=== PATIENT | female | born 1995 | race African-American/Black ===

== ENCOUNTER 2018-12-16 20:53 | Inpatient (IN) | payer OTHER ==
[2018-12-16] MEDS ORDERED: Ringers Lactate 1,000 ML IV PRN (21:16)
[2018-12-16 21:57] LABS: RPR Titer ND
[2018-12-16 21:59] LABS: Absolute Lymphocytes (CBC) 1.1 K/uL (0.7-4.9); Absolute Monocytes 1.2 K/uL (0.1-1.3); Absolute Neutrophil 9.5 K/uL (1.8-8.0); Basophils % 0.2 % (0-1.3); Eosinophils % 0.5 % (0-4.4); Monocytes % 10.3 % (3.3-12.3); RBC Red Blood Cell Count 4.44 M/uL (3.86-4.86)
[2018-12-16] MEDS ORDERED: Ringers Lactate 1,000 ML IV SCH (22:00)
[2018-12-16] MEDS ORDERED: BUTORPHANOL 1 MG/ML INJ IV PRN (22:06)
[2018-12-16] MEDS ORDERED: METHYLERGONOVINE 0.2MG/ML AMP IM ONE (22:20)
[2018-12-16] MEDS ORDERED: CARBOPROST TROME 250 MCG/ML IM ONE (22:20)
[2018-12-16] MEDS ORDERED: LIDOCAINE 1% MPF 30 ML VIAL SQ PRN (22:24)
--- NOTE | 2018-12-16 22:26 | P.OBGYNHP ---
Certification for Inpatient Patient admitted to: Inpatient With expected LOS: <2 Midnights Patient will require the following post-hospital care: None Practitioner: I am a practitioner with admitting privileges, knowledge of patient current condition, hospital course, and medical plan of care. Services: Services provided to patient in accordance with Admission requirements found in Title 42 Section 412.3 of the Code of Federal Regulations Patient History Date of Service: 12/17/18 Reason for admission: LABOR History of Present Illness: Patient is a 23 y/o a 39 weeks and 3 days gestation who presents in labor with rupture of membranes. Her water broke and she has been having contractions since earlier this evening. She has obtained care at [facility]. Her records were requested and reviewed. Patient last had an ultrasound in October and the estimated weight was about 6 pounds. She had chlamydia during the which was treated. She is RH negative. Allergies No Known Allergies Allergy (Unverified 12/16/18 21:16) Home Medications: Pnv22/Iron Cbn&Gluc/FA/Dss/Dha [Pnv Ob+Dha Combo Pack] 1 cap PO DAILY 12/17/18 - Past Medical/Surgical History Has patient received pneumonia vaccine in the past: No Diabetic: No Past Medical History: Patient denies medical history Past Surgical History: Patient denies surgical history - Family History Family History: Reviewed- Non-Contributory - Social History Smoking Status: Never smoker Alcohol use: No CD- Drugs: No Caffeine use: No Place of Residence: Home Review of Systems 10-point ROS is otherwise unremarkable Physical Examination - Vital Signs Temperature: 99.8 F Blood Pressure: 127/80 Pulse: 76 Respirations: 18 - General General: Alert, Oriented x3, Moderate distress HEENT: Atraumatic Neck: Supple Respiratory: Normal air movement Cardiovascular: No edema, Normal pulses Breasts: Normal configuration, Normal contours, Symmetrical Musculoskeletal: No clubbing, No swelling Integumentary: No rashes, No breakdown Neurological: Normal gait, Normal speech - Female Pelvic Cervix: Dilation (9cm), Effacement (100), station (0) Uterus: Gravid Adnexa: Unable to evaluate - Obstetrics heart rate tracing: Category 2 Contractions: Frequency (every 3-4 minutes) Amniotic membrane: SROM Laboratory Data (last 24 hrs) 12/16/18 21:40: WBC 11.8 H, Hgb 13.3, Hct 40.0, Plt Count 217 Assessment and Plan - Plan Patient is a 23 y/o at 39 weeks and 3 days gestation who presents in active labor. RH Negative. Patient is 9 cm dilated. Will provide stadol for pain management. Routine intrapartum care. Anticipate vaginal . Discharge Plan: Home Plan to discharge in: 48 Hours - Advance Directives Does patient have a Living Will: No Does patient have a Durable POA for Healthcare: No
[2018-12-16 22:57] LABS: RPR (Rapid Plasma Reagin) NON-REACT (NON-REACT)
[2018-12-16] MEDS ORDERED: OXYTOCIN/LR 20 UNIT/1,000 ML BAG IV SCH (23:00)
[2018-12-17] MEDS ORDERED: IBUPROFEN 200 MG TAB PO PRN (00:04)
[2018-12-17] MEDS ORDERED: ACETAMINOPHEN 500 MG TAB PO PRN (00:04)
[2018-12-17] MEDS ORDERED: BISACODYL 10 MG RECTAL SUPP RECT PRN (00:04)
[2018-12-17] MEDS ORDERED: METHYLERGONOVINE 0.2 MG TAB PO PRN (00:04)
[2018-12-17] MEDS ORDERED: Oxycodone HCl/Acetaminophen 1 TAB TAB PO PRN (00:04)
[2018-12-17] MEDS ORDERED: ONDANSETRON 4 MG (ODT) TAB PO PRN (00:04)
[2018-12-17] MEDS ORDERED: Rho(D) IG (HUMAN) 300 MCG SYR IM PRN (00:04)
[2018-12-17] MEDS ORDERED: DOCUSATE NA/SENNA CONC 1 TAB PO PRN (00:04)
--- NOTE | 2018-12-17 00:04 | P.OP ---
Date of Service: 12/17/18 Findings and Operative Technique Patient delivered a viable male in cephalic presentation on 12/16/18 at 23 :42. was delivered over a midline episiotomy. Once infant was delivered the nose and mouth were suctioned with a suction bulb and cord was clamped and cut. was placed on the mother's abdomen. Cord blood was obtained. Placenta was then delivered with gentle traction. Placenta was inspected and found to be intact. Uterine massage was performed and fundus was found to be firm. Attention was then turned to the perineum which was repaired with a 2.0 vicryl in usual fashion. EBL was 300cc. APGARS were assigned 9/10. Weight was found to be 5 lb 13 ounces. First stage of labor was 4 hours and 23 minutes. Second stage was 11 minutes. Both mom and baby are doing well and bonding well. Patient is breast feeding. Routine care to be provided.
[2018-12-17 00:46] VITALS: BMI 29.4
[2018-12-17 13:34] LABS: Absolute Lymphocytes (CBC) 1.5 K/uL (0.7-4.9); Absolute Monocytes 1.6 K/uL (0.1-1.3); Absolute Neutrophil 17.2 K/uL (1.8-8.0); Basophils % 0.2 % (0-1.3); Eosinophils % 0.2 % (0-4.4); Lymphocytes % 7.2 % (15.3-44.8); MPV 10.9 fL (7.6-11.3); Monocytes % 7.8 % (3.3-12.3); RBC Red Blood Cell Count 4.25 M/uL (3.86-4.86)
[2018-12-17 14:45] LABS: Blood Morphology Comment NOTED (NOT SEEN); Macrocytosis 1+; Platelet Estimate ADEQ; Polychromasia SLIGHT
[2018-12-18 07:51] VITALS: BP 114/63; TEMP 97.8
[2018-12-18] MEDS ORDERED: Tdap (Diph,Pertuss(Acell),Tet Vac) 0.5 ML SYR IMVAC ONE (08:09)
--- NOTE | 2018-12-19 21:55 | P.DS ---
Admission Date: 12/16/18 Discharge Date: 12/18/18 Disposition: ROUTINE DISCHARGE Discharge Condition: GOOD Reason for Admission: LABOR Brief History of Present Illness: Patient is a 23 y/o a 39 weeks and 3 days gestation who presents in labor with rupture of membranes. Her water broke and she has been having contractions since earlier this evening. She has obtained care at [facility]. Her records were requested and reviewed. Patient last had an ultrasound in October and the estimated weight was about 6 pounds. She had chlamydia during the which was treated. She is RH negative. Hospital Course: Patient did well following delivery. Her pain has been well managed. She is tolerating a regular diet. She is ambulating without difficulty. She is bonding well with the baby. No new issues. Vital Signs/Physical Exam: Temp Pulse Resp BP Pulse Ox 97.8 F 63 18 114/63 12/18/18 07:10 12/18/18 07:10 12/18/18 07:10 12/18/18 07:10 General: Alert, In no apparent distress HEENT: Atraumatic Neck: Supple Respiratory: Normal air movement Cardiovascular: No edema, Normal pulses Gastrointestinal: Other (fundus firm ) Integumentary: No rashes, No breakdown Neurological: Normal gait, Normal speech External genitalia: No edema, No lesions Laboratory Data at Discharge: WBC 20.3 K/uL (4.3-10.9) H* D 12/17/18 13:14 Hgb 12.8 g/dL (12.0-15.0) 12/17/18 13:14 Hct 38.0 % (36.0-45.0) 12/17/18 13:14 Plt Count 216 K/uL (152-406) 12/17/18 13:14 Home Medications: Pnv22/Iron Cbn&Gluc/FA/Dss/Dha [Pnv Ob+Dha Combo Pack] 1 cap PO DAILY 12/17/18 Diet: Regular Activity: No lifting more than 10 lbs Followup: Rj Vazquez DO [ACTIVE - CAN ADMIT] - (Follow up care with Dr. Vazquez in 6 weeks for post visit. [phone])
[2018-12-23 04:16] LABS: HBsAG Nonreactive (Nonreactive)
== END 2018-12-18 11:30 | disposition home or self-care (01) | DRG 806 ==
LOC: L&D 20:53 → 2ND-WC 21:13
PROVIDERS: ADMIT Student in an Organized Health Care Education/Training Program; ATTEND Student in an Organized Health Care Education/Training Program
PROC: 10E0XZZ Delivery of Products of Conception, External Approach (ICD-10-PCS; principal; 2018-12-17)
PROC: 0W8NXZZ Division of Female Perineum, External Approach (ICD-10-PCS; 2018-12-17)
DX: O98.32 Other infections with a predominantly sexual mode of transmission complicating childbirth (principal); O36.0930 Maternal care for other rhesus isoimmunization, third trimester, not applicable or unspecified; Z37.0 Single live birth; A56.8 Sexually transmitted chlamydial infection of other sites; Z3A.39 39 weeks gestation of pregnancy
CPT/HCPCS: 36415; 85025; 85461; 86592; 86850; 86870; 86901; 87340; 90715; J0595; J2210; J2590; J2790

== ENCOUNTER 2020-09-17 04:29 | Inpatient (IN) | payer OTHER ==
--- OUTSIDE RECORDS SUMMARY | 2020-09-17 04:32 | XMS REPORT | Continuity of Care Document ---
:[address] [facility] t Address [address] [place] [address] Care Team Providers Name Role Phone Mati Purcell Attending Clinician Problems This patient has no known problems. Allergies, Adverse Reactions, Alerts This patient has no known allergies or adverse reactions. Medications This patient has no known medications. Procedures This patient has no known procedures. Encounters Start End Encounter Admission Attending Care Care Encounter Source Date/Time Date/Time Type Type Clinicians Facility Department ID 2020-09-05 2020-09-05 Routine Brianne [facility] [id number] 14:26:53 14:53:59 Velvet C OLERICULTURIST [id number] Visit REGIONAL [id number] MATERNAL [id number] & CHILD 107 [facility] 2020-08-29 2020-08-29 Routine Brianne [facility] [id number] 15:42:06 16:40:03 Velvet C OLERICULTURIST [id number] Visit REGIONAL [id number] MATERNAL [id number] & CHILD 107 [facility] Results This patient has no known results.
--- OUTSIDE RECORDS SUMMARY | 2020-09-17 04:32 | XMS REPORT | Summary of Care ---
:1995 Author Organization [facility] Address [address] [place] [address] Care Team Providers Name Role Phone Velvet Decker [facility] Provider [phone] Reason for Visit Reason Comments Care Encounter Details Date Type Department Care Team Description 06/26/2020 Routine [facility]- Brianne, Richard vision of high risk in second trimester (Primary Dx); Visit Saba Thorne [facility] Multiparity; [address] Need f or Tdap vaccination; Street ST Rh negative status during in t hird trimester; [place], [place] [address] [place], [place] [phone] Allergies No Known Allergiesdocumented as of this encounter (statuses as of 06/27/2020) Medications Medication Sig Dispensed Refills Start Date End Date Status vit Take by mouth. 0 A ctive calc,iron,folic ( VITAMIN ORAL)Indications: Supervision of high-risk with insufficient care in third trimester PNV 67-iron ps-folate Take 1 Each by 30 capsule 6 10/28/2018 Active no.1-dha (VITAFOL mouth daily. ULTRA) 29 mg iron- 1 mg-200 mg CapIndications: Supervision of high-risk with insufficient care in third trimester ascorbic acid, vitamin Take 1 tablet by 90 tablet 2 06/13/2020 Active C, 500 mg mouth 3 (three) tabletIndications: times daily. Anemia of mother in , antepartum ferrous sulfate 325 mg Take 1 tablet by 60 tablet 3 06/13/2020 Active (65 mg iron) mouth 2 (two) tabletIndications: times daily. Anemia of mother in , antepartum Hospital, Clinic, or Other Ordered Dose Route Frequency Start Date End Date Status Facility Administered Medication rho(D) immune globulin 300 mcg IM ONCE 06/26/20202019 Ended (RHOGAM) syringe 300 mcgIndications: Rh negative status during in third trimester documented as of this encounter (statuses as of 06/27/2020) Active Problems Problem Noted Date Anemia of mother in , antepartum 06/13/2020 Multiparity 04/20/2020 Obesity in 04/20/2020 Rh negative state in antepartum period 10/29/2018 Overview: Rhogam at 28 weeks and prn vaginal bleed ing Supervision of high-risk with insufficient p renatal care 10/28/2018 Estimated Date of Delivery Comments Yes 09/13/2020 Based on last menstr ual period of 12/08/2019 (Exact Date) documented as of this encounter (statuses as of 06/27/2020) Resolved Problems Problem Noted Date Resolved Date Carpal tunnel syndrome during 12/03/2018 04/20/2020 Chlamydia trachomatis infection of lower genitourinary sites 11/01/2018 04/20/2020 Overview: Mireya at next visit and at 36 weeks documented as of this encounter (statuses as of 06/27/2020) Immunizations Name Administration Dates Next Due Rho (d) Immune Globulin 06/26/2020 TDAP 06/26/2020 documented as of this encounter Social History Tobacco Use Types Packs/Day Years Used Date Never Smoker Smokeless Tobacco: Never Used Alcohol Use Drinks/Week oz/Week Comments No Estimated Date of Delivery Comments Yes 09/13/2020 Based on last menstr ual period of 12/08/2019 (Exact Date) Sex Assigned at Date Recorded Not on file COVID-19 Exposure Response Date Recorded In the last month, have you been in contact with No / Unsure 06/26/2020 10:03 AM CDT someone who was confirmed or suspected to have Coronavirus / COVID-19? documented as of this encounter Last Filed Vital Signs Vital Sign Reading Time Taken Comments Blood Pressure 109/62 06/26/2020 10:04 AM CDT Pulse 83 06/26/2020 10:04 AM CDT Temperature 36.9 C (98.4 F) 06/26/2020 10:04 AM CDT Respiratory Rate 16 06/26/2020 10:04 AM CDT Oxygen Saturation - - Inhaled Oxygen Concentration - - Weight 83.5 kg (184 lb 2 oz) 06/26/2020 10:04 AM CDT Height 165.1 cm (5' 5") 06/26/2020 10:04 AM CDT Body Mass Index 30.64 06/26/2020 10:04 AM CDT documented in this encounter Progress Notes Velvet Decker, WHCNP - 06/26/2020 9:45 AM CDT Chief complaint: Chief Complaint Patient presents with Care HPI CC: Follow Up Visit Karen Harman is a 25 year old, , Black or female. Patient's last menstrual period was 12/08/2019 (exact date). She is 28w5d with an intrauterine . Her estimated date of delivery is 09/13/2020, by Last Menstrual Period. She has no complaints today. She reports +FM and denies contractions, LOF and bleeding today. Histories OB History Para Term AB Living 2 1 1 1 SAB TAB Ectopic Multiple Live Births 1 # Outcome Date GA Lbr Eliazar/2nd Weight Sex Delivery Anes PTL Lv 2 Current 1 Term 12/16/18 39w3d M NORMAL SPONT MAX Past Medical History: Diagnosis Date Anemia of mother in , antepartum 06/13/2020 Family History Problem Relation Age of Onset Hypertension Mother No Significant Medical Problems Sister No Significant Medical Problems Brother No Significant Medical Problems Maternal Aunt No Significant Medical Problems Maternal Uncle Diabetes Maternal Grandmother Hypertension Maternal Grandmother Heart Maternal Grandmother High cholesterol Maternal Grandmother Other - see comments Maternal Grandmother thyroid Heart Maternal Grandfather Diabetes Maternal Grandfather High cholesterol Maternal Grandfather Hypertension Maternal Grandfather Family Status Relation Name Status Mo Alive Fa Alive Sis Alive Bro Alive MAunt Alive MUnc Alive PAunt Alive PUnc Alive MGMo Alive thyroid MGFa PGMo PGFa No past surgical history on file. Social History Socioeconomic History Marital status: Single Spouse name: Not on file Number of children: Not on file Years of education: Not on file Highest education level: Not on file Occupational History Not on file Social Needs Financial resource strain: Not on file Food insecurity Worry: Not on file Inability: Not on file Transportation needs Medical: Not on file Non-medical: Not on file Tobacco Use Smoking status: Never Smoker Smokeless tobacco: Never Used Substance and Sexual Activity Alcohol use: No Drug use: No Sexual activity: Yes Partners: Male control/protection: None Comment: last sexual intercourse 03/21/2020 Lifestyle Physical activity Days per week: Not on file Minutes per session: Not on file Stress: Not on file Relationships Social connections Talks on phone: Not on file Gets together: Not on file Attends cheondoism service: Not on file Active member of club or organization: Not on file Attends meetings of clubs or organizations: Not on file Relationship status: Not on file Intimate partner violence Fear of current or ex partner: Not on file Emotionally abused: Not on file Physically abused: Not on file Forced sexual activity: Not on file Other Topics Concern Not on file Social History Narrative Patient lives with child. Patient has 1 dog. Social History Substance and Sexual Activity Sexual Activity Yes Partners: Male control/protection: None Comment: last sexual intercourse 03/21/2020 Labs Labs are pending. and Routine Visit on 06/12/2020 Component Date Value POCT U SP GRAV 06/12/2020 . POCT PH U 06/12/2020 . POCT U LEUK EST 06/12/2020 . POCT U NIT 06/12/2020 . POCT U PROT 06/12/2020 1+ POCT U GLU 06/12/2020 Neg POCT U KETONE 06/12/2020 . POCT U UROBILI 06/12/2020 . POCT U BILI 06/12/2020 . POCT U BLD 06/12/2020 . GLUC 1 HR 06/12/2020 92* WBC 06/12/2020 8.30 RBC 06/12/2020 3.45* HGB 06/12/2020 10.1* HCT 06/12/2020 31.6* MCV 06/12/2020 91.6 MCH 06/12/2020 29.3 MCHC 06/12/2020 32.0 RDW-SD 06/12/2020 44.8 RDW-CV 06/12/2020 13.4 PLT 06/12/2020 251 MPV 06/12/2020 11.5 NRBC/100 WBC 06/12/2020 0.0 NRBC x10^3 06/12/2020 <0.01 GRAN MAT (NEUT) % 06/12/2020 72.2 IMM GRAN % 06/12/2020 1.20 LYMPH % 06/12/2020 16.5 MONO % 06/12/2020 7.3 EOS % 06/12/2020 2.3 BASO % 06/12/2020 0.5 GRAN MAT x10^3(ANC) 06/12/2020 5.99 IMM GRAN x10^3 06/12/2020 0.10* LYMPH x10^3 06/12/2020 1.37 MONO x10^3 06/12/2020 0.61 EOS x10^3 06/12/2020 0.19 BASO x10^3 06/12/2020 0.04 Routine Visit on 05/22/2020 Component Date Value POCT U SP GRAV 05/22/2020 . POCT PH U 05/22/2020 . POCT U LEUK EST 05/22/2020 . POCT U NIT 05/22/2020 . POCT U PROT 05/22/2020 Trace POCT U GLU 05/22/2020 Neg POCT U KETONE 05/22/2020 . POCT U UROBILI 05/22/2020 . POCT U BILI 05/22/2020 . POCT U BLD 05/22/2020 . Initial Visit on 04/20/2020 Component Date Value POCT PREG 04/20/2020 Positive On board controls accept* 04/20/2020 Yes ABO & RH 04/20/2020 B NEGATIVE IAT 04/20/2020 Negative GLUC 1 HR 04/20/2020 117* CoV-2 IgG 04/20/2020 Negative WBC 04/20/2020 7.56 RBC 04/20/2020 3.58* HGB 04/20/2020 10.7* HCT 04/20/2020 32.1* MCV 04/20/2020 89.7 MCH 04/20/2020 29.9 MCHC 04/20/2020 33.3 RDW-SD 04/20/2020 42.3 RDW-CV 04/20/2020 12.9 PLT 04/20/2020 258 MPV 04/20/2020 11.7 NRBC/100 WBC 04/20/2020 0.0 NRBC x10^3 04/20/2020 <0.01 GRAN MAT (NEUT) % 04/20/2020 75.1 IMM GRAN % 04/20/2020 0.70 LYMPH % 04/20/2020 16.4 MONO % 04/20/2020 5.4 EOS % 04/20/2020 2.0 BASO % 04/20/2020 0.4 GRAN MAT x10^3(ANC) 04/20/2020 5.68 IMM GRAN x10^3 04/20/2020 0.05 LYMPH x10^3 04/20/2020 1.24* MONO x10^3 04/20/2020 0.41 EOS x10^3 04/20/2020 0.15 BASO x10^3 04/20/2020 0.03 HBsAg 04/20/2020 Negative HBsAg Semi-Quantitative 04/20/2020 0.10 HIV 1/2 Ag-Ab with Reflex 04/20/2020 Negative HIV Semi-quantitative 04/20/2020 0.07 Rubella screen IgG 04/20/2020 Positive Syphilis IgG/IgM 04/20/2020 Non-reactive URINE CULTURE 04/20/2020 >100,000 CFU/mL Lactobacillus VZV IgG antibody 04/20/2020 Positive C. trachomatis Nucleic A* 04/20/2020 Negative N. gonorrhoeae Nucleic A* 04/20/2020 Negative TSH 04/20/2020 0.51 SICKLE SCR 04/20/2020 Negative Case Report 04/20/2020 Value:Gynecologic Cytology Case: [id number] Authorizing Provider: Velvet Decker, Collected: 04/20/2020 1617 [facility] Ordering Location: [facility]- Received: 04/20/[address] [place] [address] Screen: Meagan Plascencia Specimen: Liquid Based Pap Preparation, CERVIX Clinical Information 04/20/2020 Value:routine Specimen Adequacy 04/20/2020 Satisfactory for Evaluation(Endocervical/Transformation Zone Component Present) Interpretation 04/20/2020 Negative for intraepithelial lesion or malignancy Comments 04/20/2020 Value:This result contains rich text formatting which cannot be displayed here. LMP 04/20/2020 Educational Note 04/20/2020 Value:This result contains rich text formatting which cannot be displayed here. Radiology No new radiology. Allergies Karen has No Known Allergies. Medications Karen has a current medication list which includes the following prescription(s): ascorbic acid (vitamin c), ferrous sulfate, pnv 67-iron ps- folate no.1-dha, and vit calc,iron,folic. Review of Systems BP 109/62 (BP Location: Right arm, Patient Position: Sitting, BP CUFF SIZE: Adult Medium) | Pulse 83 | Temp 36.9 C (98.4 F) (Oral) | Resp 16 | Ht 5' 5" (1.651 m) | Wt 184 lb 2 oz (83.5 kg) | LMP 12/08/2019 (Exact Date) | BMI 30.64 kg/m Pregravid BMI: 28.96 Physical Exam Assessment/Plan Return to clinic in 2 weeks. Denies zika virus risk, signs and symptoms such as fever,rash,joint pain, conjunctivitis (red eyes),muscle pain, headaches; outside [place] travel to areas affected by zika, and FOB exposure to zika. Educated on use of mosquito repellent. Supervision of high risk in second trimester (primary encounter diagnosis) Multiparity Comment: routine Plan: HIV 1/2 AG-AB WITH REFLEX, GALV ONLY - SYPHILIS IGG/IGM, POCT URINALYSIS W SPECIFIC GRAVITY Need for Tdap vaccination Comment: as ordered Plan: TDAP VACCINE, >10 YRS, IM Rh negative status during in third trimester Comment: as ordered Plan: rho(D) immune globulin (RHOGAM) syringe 300 mcg Obesity in Comment: see bmi Plan: BMI discussed, appropriate weight gain, sensible diet, and exercise, increased fiber and waterintake and protein low in fat. Encouraged exercise for 30 min everyday; begin regimen with caution to prevent injury. Encouraged to decrease BMI to <25. Educated on how obesity and smoking can affect future and health. Educated on the effects of chronic health problems, tobacco use, and mental health on future pregnancies and/or termite inspector health. This visit did not involve counseling and coordination that comprised more than 50% of the visit time. MARLI Lemus 06/26/2020 10:29 AM Josué Dewey RN - 06/26/2020 9:45 AM CDTPatient provided with 28 weeks packet; stressed the importance of the kick count of 10 x within 2 hours; patient verbalized understanding. Tdap given IM to left deltoid per aseptic tech; site massaged; band-aid applied; tolerated well; VISgiven and reviewed with patient at this time. Shared decision plan completed today. Reviewed s/s of labor. PHQ2 done at this time. Patient denies any complications at this time. JOSUÉ DEWEY RN 06/26/2020 10:21 AM documented in this encounter Plan of Treatment Date Type Specialty Care Team Description 07/10/2020 Routine Visit [facility] Carito Decker, CNP [address] [address] [phone] Health Maintenance Due Date Last Done Comments INFLUENZA VACCINE (#1) 2021 Postponed from 05/22/2020 (Refused) HPV VACCINES (1 - 2-dose 04/11/2021 Postpon ed from 2007 series) ( or ) CHLAMYDIA SCREENING 04/20/2021 04/20/2020, 11/25/2018, 10/28/2018 Depression Screening 04/20/2021 04/20/2020 PAP SMEAR 04/20/2023 04/20/2020 DTaP,Tdap,and Td Vaccines (2 06/26/2030 06/26/2020 - Td) PNEUMOCOCCAL 0-64 YEARS Aged Out No longe r eligible based COMBINED SERIES on patient's age to complete this to [facility] documented as of this encounter Procedures Procedure Name Priority Date/Time Associated Diagnosis Comme nts TDAP VACCINE, >11 Routine 06/26/2020 10:19 Need for Tdap YRS, IM AM CDT vaccination GALV ONLY - SYPHILIS Routine 06/26/2020 10:10 Supervision of h igh Results for this IGG/IGM AM CDT risk in procedure are in second trimester the results section. HIV 1/2 AG-AB WITH Routine 06/26/2020 10:10 Supervision of hig h Results for this REFLEX AM CDT risk in procedure are in second trimester the results section. HB ABO GROUPING Routine 06/26/2020 10:10 Rh negative status Re sults for this AM CDT during in procedur e are in third trimester the results section. POCT URINALYSIS Routine 06/26/2020 10:05 Supervision of high R esults for this AM CDT risk in procedure are in second trimester the results section. documented in this encounter Results Workup, Blood Bank (06/26/2020 10:10 AM CDT) Pathologist Sig lico ABO & RH B NEGATIVE LAB Comment: Performed at [facility] Laboratory Services - [facility] Blood Bank [address] [place] [address] Toll Free: [phone] CLIA No. [id number] IAT Negative LAB Comment: Performed at [facility] Laboratory Services - [facility] Blood Bank [address] [place] [address] Toll Free: [phone] CLIA No. [id number] Specimen Blood - VENOUS Performing Organization Address City/State/Zipcode Phone Number [facility] LAB GALV ONLY - SYPHILIS IGG/IGM (06/26/2020 10:10 AM CDT) Pathologist [facility] Syphilis IgG/IgM Non-reactive Non-reactive [facility]ORATORY SERVICES Specimen Blood - VENOUS Narrative Performed At [facility] LABORATORY SERVICES Non-reactive - No serologic evidence of T. pallidum infection. Cannot exclude incubating or early syphilis . Submit a second specimen in 2-4 weeks if syphilis is clinically suspected. Equivocal - Further testing to follow. Reactive - Further testing to follow. Performing Organization Address City/State/Zipcode Phone Number [facility] CLIA: [id number] [place] [address] [place] [address] HIV 1/2 AG-AB WITH REFLEX (06/26/2020 10:10 AM CDT) Pathologist [facility] HIV 1/2 Ag-Ab with Negative Negative [facility] Reflex SERVICES HIV Semi-quantitative 0.16 [facility] Specimen Blood Narrative Performed At Non-reactive for HIV-1 antigen and HIV-1/HIV-2 antibod ies. [facility] No laboratory evidence of HIV infection. Repeat in 2-4 weeks if acute HIV infection is suspected. Performing Organization Address City/State/Zipcode Phone Number [facility] CLIA: [id number] [place] [address] [place] [address] POCT URINALYSIS W SPECIFIC GRAVITY (06/26/2020 10:05 AM CDT) Pathologist Sig nature POCT U SP GRAV . 1.005 - 1.025 mg/dl POCT PH U . 5 - 8 mg/dl POCT U LEUK EST . Negative - Negative POCT U NIT . Negative - Negative POCT U PROT Trace Negative - Negative POCT U GLU Neg Negative - Negative POCT U KETONE . Negative - Negative POCT U UROBILI . 0.2 - 1 mg/dl POCT U BILI . Negative - Negative POCT U BLD . Negative - Negative POCT U COLOR POCT U APPEAR Specimen Urine - URINE, CLEAN CATCH documented in this encounter Visit Diagnoses Diagnosis Supervision of high risk in se cond trimester - Primary Unspecified high-risk Multiparity Need for Tdap vaccination Need for prophylactic vaccination with c ombined dndlvujavm-diodbjz-jdlapgfgy (DTP) vaccine Rh negative status during in t hird trimester Obesity in Obesity complicating , childbir th, or the puerperium, unspecified as to episode of care or not applicable documented in this encounter Administered Medications Medication Order MAR Action Action Date Dose Rate Site rho(D) immune globulin Given 06/26/2020 10:24 AM 300 mcg Right (RHOGAM) syringe 300 mcg CDT Dorsogluteal-IM 300 mcg, Intramuscular, ONCE, 1 dose, 06/26/20 at 1130, Routine documented in this encounter Insurance Payer Benefit Plan / Subscriber ID Effective Phone Address T [facility] [id number] 2020-[address]se [address] Medic aid HEALTH CHOICE - HEALTH CHO[place] [id number] 1 MANAGED MEDICAID [place], [place] [phone] documented as of this encounter Advance Directives Name Relationship Healthcare Agent Communication Relationship Susana Michaud Grandparent Health Care Agent
--- OUTSIDE RECORDS SUMMARY | 2020-09-17 04:32 | XMS REPORT | Summary of Care ---
:1995 Author Organization [facility] Address [address] [place] [address] Care Team Providers Name Role Phone Velvet Decker [facility] Primary Care Provider [phone] Reason for Visit Reason Comments Care Encounter Details Date Type Department Care Team Description 07/10/2020 Routine [facility]- Richard Decker vision of high risk in third trimester (Primary Dx); Visit Saba Thorne AMENA Multiparity; [address] Obes[place] [address] in ; Street ST Rh negative state in antepartum period [facility] A [address] [place], [place] [phone] [address] Allergies No Known Allergiesdocumented as of this encounter (statuses as of 07/10/2020) Medications Medication Sig Dispensed Refills Start Date [...] daily. Anemia of mother in , antepartum documented as of this encounter (statuses as of 07/10/2020) Active Problems Problem Noted Date Anemia of [...] as of this encounter (statuses as of 07/10/2020) Resolved Problems Problem Noted Date Resolved Date Carpal tunnel syndrome during 12/03/2018 04/20/2020 Chlamydia trachomatis infection of lower genitourinary sites 11/01/2018 04/20/2020 Overview: Mireya at next visit and at 36 weeks documented as of this encounter (statuses as of 07/10/2020) Immunizations Name Administration Dates Next Due Rho [...] been in contact with No / Unsure 07/10/2020 2:58 PM CDT someone who was confirmed or suspected to have Coronavirus / COVID-19? documented as of this encounter Last Filed Vital Signs Vital Sign Reading Time Taken Comments Blood Pressure 113/56 07/10/2020 2:58 PM CDT Pulse 87 07/10/2020 2:58 PM CDT Temperature 36.8 C (98.3 F) 07/10/2020 2:58 PM CDT Respiratory Rate 16 07/10/2020 2:58 PM CDT Oxygen Saturation - - Inhaled Oxygen Concentration - - Weight 84.5 kg (186 lb 6 oz) 07/10/2020 2:58 PM CDT Height 165.1 cm (5' 5") 07/10/2020 2:58 PM CDT Body Mass Index 31.01 07/10/2020 2:58 PM CDT documented in this encounter Progress Notes Velvet Decker, WHCNP - 07/10/2020 2:00 PM CDT Chief complaint: Chief Complaint Patient presents with Care HPI CC: Follow Up Visit Karen Harman is a 25 year old, , Black or female. Patient's last menstrual period was 12/08/2019 (exact date). She is 30w5d with an intrauterine . Her estimated date [...] file Gets together: Not on file Attends protestant service: Not on file Active member of [...] None Comment: last sexual intercourse 03/21/2020 Labs No new labs and Routine Visit on 06/26/2020 Component Date Value HIV 1/2 Ag-Ab with Reflex 06/26/2020 Negative HIV Semi-quantitative 06/26/2020 0.16 Syphilis IgG/IgM 06/26/2020 Non-reactive POCT U SP GRAV 06/26/2020 . POCT PH U 06/26/2020 . POCT U LEUK EST 06/26/2020 . POCT U NIT 06/26/2020 . POCT U PROT 06/26/2020 Trace POCT U GLU 06/26/2020 Neg POCT U KETONE 06/26/2020 . POCT U UROBILI 06/26/2020 . POCT U BILI 06/26/2020 . POCT U BLD 06/26/2020 . ABO & RH 06/26/2020 B NEGATIVE IAT 06/26/2020 Negative Routine Visit on 06/12/2020 Component Date Value [...] Negative Case Report 04/20/2020 Value:Gynecologic Cytology Case: [id number] Authorizing Provider: Velvet Decker, Collected: 04/20/2020 [address] [facility] Ordering Location: [facility]- Received: 04/20/[address] [place] [address] First Screen: Meagan Plascencia Specimen: Liquid Based Pap [...] no.1-dha, and vit calc,iron,folic. Review of Systems Constitutional: Negative. HENT: Negative. Eyes: Negative. Respiratory: Negative. Breasts: Negative. Cardiovascular: Negative. Gastrointestinal: Negative. Genitourinary: Negative. Musculoskeletal: Negative. Skin: Negative. Neurological: Negative. Psychiatric/Behavioral: Negative. Endocrine: Endocrine negative BP 113/56 (BP Location: Right arm, Patient Position: Sitting, BP CUFF SIZE: Adult Medium) | Pulse 87 | Temp 36.8 C (98.3 F) (Oral) | Resp 16 | Ht 5' 5" (1.651 m) | Wt 186 lb 6 oz (84.5 kg) | LMP 12/08/2019 (Exact Date) | BMI 31.01 kg/m Pregravid BMI: 28.96 Physical Exam PHYSICAL: General Exam: Neurological: Normal Abdomen: Normal gravid Extremities: Normal Pelvic Exam: Uterus: 30 Weeks Assessment/Plan Return to clinic in 2 weeks. Denies zika virus risk, signs and symptoms such as fever,rash,joint pain, conjunctivitis (red eyes),muscle pain, headaches; outside [place] travel to areas affected by zika, and FOB exposure to zika. Educated on use of mosquito repellent. Supervision of high risk in third trimester (primary encounter diagnosis) Multiparity Comment: routine Plan: POCT URINALYSIS W SPECIFIC GRAVITY Obesity in Comment: see bmi Plan: BMI [...] and mental health on future pregnancies and/or custodial health. Rh negative state in antepartum period Comment: no mgmt today Plan: as needed mgm t This visit did not involve counseling and coordination that comprised more than 50% of the visit time. MARLI Lemus 07/10/2020 3:13 PM documented in this encounter Plan of Treatment Health Maintenance Due Date Last Done Comments [...] on patient's age to complete this to the medical center documented as of this encounter Procedures Procedure Name Priority Date/Time Associated Diagnosis Comme nts POCT URINALYSIS Routine 07/10/2020 3:01 PM Supervision of flora pelaez Results for this CDT risk in procedure are in third trimester the results section. 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 Medic aid HEALTH CHOICE - HEALTH CHOICE nt [id number] 1 MANAGED MEDICAID [place], [place] MED[place]ID [phone] documented as of this encounter Advance Directives Name Relationship Healthcare Agent Communication Relationship Susana Michaud Grandparent Health Care Agent
--- OUTSIDE RECORDS SUMMARY | 2020-09-17 04:33 | XMS REPORT | Summary of Care ---
:1995 Author Organization [facility] Address [address] [place] [address] Care Team Providers Name Role Phone Velvet Decker [facility] Primary Care Provider [phone] Reason for Visit Reason Comments Care Encounter Details Date Type Department Care Team Description 08/22/2020 Routine [facility] Health RMCHP- Brianne, Super vision of high risk in third trimester (Primary Dx); [facility]; [address] [place] in ; Street ST Anemia of mother in , antepartu m; [place], [place] MAN A Rh negative state in antepartum period [address] [place], [place] [phone] [address] Allergies No Known Allergiesdocumented as of this encounter (statuses as of 08/22/2020) Medications Medication Sig Dispensed Refills Start Date [...] as of this encounter (statuses as of 08/22/2020) Active Problems Problem Noted Date Anemia of [...] as of this encounter (statuses as of 08/22/2020) Resolved Problems Problem Noted Date Resolved Date Carpal tunnel syndrome during 12/03/2018 04/20/2020 Chlamydia trachomatis infection of lower genitourinary sites 11/01/2018 04/20/2020 Overview: Mireya at next visit and at 36 weeks documented as of this encounter (statuses as of 08/22/2020) Immunizations Name Administration Dates Next Due Rho [...] been in contact with No / Unsure 08/22/2020 2:20 PM TUNNEL HEADING INSPECTOR someone who was confirmed or suspected to have Coronavirus / COVID-19? documented as of this encounter Last Filed Vital Signs Vital Sign Reading Time Taken Comments Blood Pressure 112/66 08/22/2020 2:33 PM TUNNEL HEADING INSPECTOR Pulse 83 08/22/2020 2:33 PM TUNNEL HEADING INSPECTOR Temperature 36.1 C (97 F) 08/22/2020 2:33 PM TUNNEL HEADING INSPECTOR Respiratory Rate 16 08/22/2020 2:33 PM TUNNEL HEADING INSPECTOR Oxygen Saturation - - Inhaled Oxygen Concentration - - Weight 90.8 kg (200 lb 2 oz) 08/22/2020 2:33 PM TUNNEL HEADING INSPECTOR Height 165.1 cm (5' 5") 08/22/2020 2:33 PM TUNNEL HEADING INSPECTOR Body Mass Index 33.3 08/22/2020 2:33 PM TUNNEL HEADING INSPECTOR documented in this encounter Progress Notes Velvet Decker, WHCNP - 08/22/2020 2:00 PM CST Chief complaint: Chief Complaint Patient presents with Care HPI CC: Follow Up Visit Karen Harman is a 25 year old, , Black or female. Patient's last menstrual period was 12/08/2019 (exact date). She is 36w6d with an intrauterine . Her estimated date of delivery is 09/13/2020, by Last Menstrual Period. She has no complaints today. She reports +FM and denies contractions, LOF and bleeding today. = Histories OB History Para Term AB Living [...] file Gets together: Not on file Attends restorationism service: Not on file Active member of [...] Labs are pending. and Routine Visit on 08/15/2020 Component Date Value POCT U SP GRAV 08/15/2020 . POCT PH U 08/15/2020 . POCT U LEUK EST 08/15/2020 . POCT U NIT 08/15/2020 . POCT U PROT 08/15/2020 Trace POCT U GLU 08/15/2020 Neg POCT U KETONE 08/15/2020 . POCT U UROBILI 08/15/2020 . POCT U BILI 08/15/2020 . POCT U BLD 08/15/2020 . Routine Visit on 07/24/2020 Component Date Value POCT U SP GRAV 07/24/2020 * POCT PH U 07/24/2020 * POCT U LEUK EST 07/24/2020 * POCT U NIT 07/24/2020 * POCT U PROT 07/24/2020 trace POCT U GLU 07/24/2020 neg POCT U KETONE 07/24/2020 * POCT U UROBILI 07/24/2020 * POCT U BILI 07/24/2020 * POCT U BLD 07/24/2020 * POCT U COLOR 07/24/2020 * POCT U APPEAR 07/24/2020 * Routine Visit on 07/10/2020 Component Date Value POCT U SP GRAV 07/10/2020 . POCT PH U 07/10/2020 . POCT U LEUK EST 07/10/2020 . POCT U NIT 07/10/2020 . POCT U PROT 07/10/2020 Trace POCT U GLU 07/10/2020 Neg POCT U KETONE 07/10/2020 . POCT U UROBILI 07/10/2020 . POCT U BILI 07/10/2020 . POCT U BLD 07/10/2020 . Routine Visit on 06/26/2020 Component Date Value [...] x10^3 06/12/2020 0.19 BASO x10^3 06/12/2020 0.04 Radiology No new radiology. Allergies Karen has [...] Negative. Psychiatric/Behavioral: Negative. Endocrine: Endocrine negative BP 112/66 (BP Location: Right arm, Patient Position: Sitting, BP CUFF SIZE: Adult Medium) | Pulse 83 | Temp 36.1 C (97 F) (Oral) | Resp 16 | Ht 5' 5" (1.651 m) | Wt 200 lb 2 oz (90.8 kg) | LMP 12/08/2019 (Exact Date) | BMI 33.30 kg/m Pregravid BMI: 28.96 Physical Exam PHYSICAL: General Exam: Neurological: Normal Abdomen: Normal gravid Extremities: Normal Pelvic Exam: Uterus: 36 Weeks Assessment/Plan Return to clinic in 1 weeks. Denies zika virus risk, signs and [...] and mental health on future pregnancies and/or jail health. Anemia of mother in , antepartum Comment: continue iron, PNV and iron-rich foods Plan: cbc today Rh negative state in antepartum period Comment: no mgmt today Plan: as needed mgmt This visit did not involve counseling and coordination that comprised more than 50% of the visit time MARLI Lemus 08/22/2020 3:10 PM . EL HEADING INSPECTOR documented in this encounter Plan of Treatment Date Type Specialty Care Team Description 08/29/2020 Routine Visit OB Satellites Carito Decker WHCNP [address] [place], [place] [address] [phone] Health Maintenance Due Date Last Done Comments [...] on patient's age to complete [facility] documented as of this encounter Procedures Procedure Name Priority Date/Time Associated Diagnosis Comme nts POCT URINALYSIS Routine 08/22/2020 2:38 PM Supervision of hig h Results for this TUNNEL HEADING INSPECTOR risk in procedure are in third trimester the results section. 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 Medic aid HEALTH CHOICE - HEALTH CHOICE nt [id number] 1 MANAGED MEDICAID [place], [place] MEDICAID [phone] documented as of this encounter Advance Directives Name Relationship Healthcare Agent Communication Relationship Susana Michaud Grandparent Health Care Agent
--- OUTSIDE RECORDS SUMMARY | 2020-09-17 04:33 | XMS REPORT | Summary of Care ---
:1995 Author Organization [facility] Address [address] [place] [address] Care Team Providers Name Role Phone Velvet Decker [facility] Primary Care Provider [phone] Reason for Visit Reason Comments Care Encounter Details Date Type Department Care Team Description 08/07/2020 Routine [facility] RMCHP- Richard Decker vision of high- risk with insufficient care in third trimester (Primary Dx); Visit MARLI Jordan Multiparity; [address] in ; Street Rh negative state in antepartum period [facility] A [address] [place], [place] [phone] [address] Allergies No Known Allergiesdocumented as of this encounter (statuses as of 08/07/2020) Medications Medication Sig Dispensed Refills Start Date [...] as of this encounter (statuses as of 08/07/2020) Active Problems Problem Noted Date Anemia of [...] as of this encounter (statuses as of 08/07/2020) Resolved Problems Problem Noted Date Resolved Date Carpal tunnel syndrome during 12/03/2018 04/20/2020 Chlamydia trachomatis infection of lower genitourinary sites 11/01/2018 04/20/2020 Overview: Mireya at next visit and at 36 weeks documented as of this encounter (statuses as of 08/07/2020) Immunizations Name Administration Dates Next Due Rho [...] been in contact with No / Unsure 08/07/2020 3:47 PM OPEN WINDER someone who was confirmed or suspected to have Coronavirus / COVID-19? documented as of this encounter Last Filed Vital Signs Vital Sign Reading Time Taken Comments Blood Pressure 109/64 08/07/2020 3:48 PM OPEN WINDER Pulse 88 08/07/2020 3:48 PM OPEN WINDER Temperature 36.9 C (98.5 F) 08/07/2020 3:48 PM OPEN WINDER Respiratory Rate 16 08/07/2020 3:48 PM OPEN WINDER Oxygen Saturation - - Inhaled Oxygen Concentration - - Weight 89 kg (196 lb 2 oz) 08/07/2020 3:48 PM OPEN WINDER Height 165.1 cm (5' 5") 08/07/2020 3:48 PM OPEN WINDER Body Mass Index 32.64 08/07/2020 3:48 PM OPEN WINDER documented in this encounter Progress Notes Velvet Decker, WHCNP - 08/07/2020 3:45 PM CST Chief complaint: Chief Complaint Patient presents with Care HPI CC: Follow Up Visit Karen Harman is a 25 year old, , Black or female. Patient's last menstrual period was 12/08/2019 (exact date). She is 34w5d with an intrauterine . Her estimated date [...] file Gets together: Not on file Attends rastafarian service: Not on file Active member of [...] No new labs and Routine Visit on 07/24/2020 Component Date Value [...] 05/22/2020 . POCT U BLD 05/22/2020 . Radiology No new radiology. Allergies Karen has [...] Negative. Psychiatric/Behavioral: Negative. Endocrine: Endocrine negative BP 109/64 (BP Location: Right arm, Patient Position: Sitting, BP CUFF SIZE: Adult Medium) | Pulse 88 | Temp 36.9 C (98.5 F) (Oral) | Resp 16 | Ht 5' 5" (1.651 m) | Wt 196 lb 2 oz (89 kg) | LMP 12/08/2019 (Exact Date) | BMI 32.64 kg/m Pregravid BMI: 28.96 Physical Exam PHYSICAL: General Exam: Neurological: Normal Abdomen: Normal gravid Extremities: Normal Pelvic Exam: Uterus: 35 Weeks Assessment/Plan Return to clinic in 1 weeks. Denies zika virus risk, signs and symptoms such as fever,rash,joint pain, conjunctivitis (red eyes),muscle pain, headaches; outside [place] travel to areas affected by zika, and FOB exposure to zika. Educated on use of mosquito repellent. Supervision of high-risk with insufficient care in third trimester (primary encounter diagnosis) Multiparity Comment: routine Plan: as needed mgmt Obesity in Comment: see bmi Plan: BMI [...] and mental health on future pregnancies and/or marine engineering technicians health. Rh negative state in antepartum period Comment: no mgmt today Plan: address pp, prn This visit did not involve counseling and coordination that comprised more than 50% of the visit time. 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 Medic aid HEALTH CHOICE - HEALTH CHOICE nt [id number] 1 MANAGED MEDICAID [place], [place] MED[place]ID [phone] documented as of this encounter Advance Directives Name Relationship Healthcare Agent Communication Relationship Susana Michaud Grandparent Health Care Agent
--- OUTSIDE RECORDS SUMMARY | 2020-09-17 04:33 | XMS REPORT | Summary of Care ---
:1995 Author Organization [facility] Address [address] [place] [address] Care Team Providers Name Role Phone Velvet Decker [facility] Primary Care Provider [phone] Reason for Visit Reason Comments Care Encounter Details Date Type Department Care Team Description 08/15/2020 Routine [facility] Health RMCHP- Brianne, Richard vision of high risk in third trimester (Primary Dx); [facility]; [address] [place] [address] in ; Street ST Rh negative state in antepartum period; [place], [place] MAN A Anemia of mother in , antepartu [address] [place], [place] [phone] [address] Allergies No Known Allergiesdocumented as of this encounter (statuses as of 08/15/2020) Medications Medication Sig Dispensed Refills Start Date [...] as of this encounter (statuses as of 08/15/2020) Active Problems Problem Noted Date Anemia of [...] as of this encounter (statuses as of 08/15/2020) Resolved Problems Problem Noted Date Resolved Date Carpal tunnel syndrome during 12/03/2018 04/20/2020 Chlamydia trachomatis infection of lower genitourinary sites 11/01/2018 04/20/2020 Overview: Mireya at next visit and at 36 weeks documented as of this encounter (statuses as of 08/15/2020) Immunizations Name Administration Dates Next Due Rho [...] been in contact with No / Unsure 08/15/2020 8:43 AM STEAM CRANE OPERATOR someone who was confirmed or suspected to have Coronavirus / COVID-19? documented as of this encounter Last Filed Vital Signs Vital Sign Reading Time Taken Comments Blood Pressure 105/65 08/15/2020 8:43 AM STEAM CRANE OPERATOR Pulse 85 08/15/2020 8:43 AM STEAM CRANE OPERATOR Temperature 36.4 C (97.6 F) 08/15/2020 8:43 AM STEAM CRANE OPERATOR Respiratory Rate 16 08/15/2020 8:43 AM STEAM CRANE OPERATOR Oxygen Saturation - - Inhaled Oxygen Concentration - - Weight 88.9 kg (196 lb) 08/15/2020 8:43 AM STEAM CRANE OPERATOR Height 165.1 cm (5' 5") 08/15/2020 8:43 AM STEAM CRANE OPERATOR Body Mass Index 32.62 08/15/2020 8:43 AM STEAM CRANE OPERATOR documented in this encounter Progress Notes Velvet Decker, WHCNP - 08/15/2020 8:30 AM CST Chief complaint: Chief Complaint Patient presents with Care HPI CC: Follow Up Visit Karen Harman is a 25 year old, , Black or female. Patient's last menstrual period was 12/08/2019 (exact date). She is 35w6d with an intrauterine . Her estimated date [...] file Gets together: Not on file Attends buddhist service: Not on file Active member of [...] Negative. Psychiatric/Behavioral: Negative. Endocrine: Endocrine negative BP 105/65 (BP Location: Right arm, Patient Position: Sitting, BP CUFF SIZE: Adult Medium) | Pulse 85 | Temp 36.4 C (97.6 F) (Oral) | Resp 16 | Ht 5' 5" (1.651 m) | Wt 196 lb (88.9 kg) | LMP 12/08/2019 (Exact Date) | BMI 32.62 kg/m Pregravid BMI: 28.96 Physical Exam PHYSICAL: General Exam: Neurological: Normal Abdomen: Normal gravid Extremities: Normal Pelvic Exam: Uterus: 37 Weeks Assessment/Plan Return to clinic in 1 [...] and mental health on future pregnancies and/or penitentiary health. Rh negative state in antepartum period Comment: no mgmt today Plan: address pp prn Anemia of mother in , antepartum Comment: continue iron, PNV and iron-rich foods Plan: as needed mgmt This visit did not involve counseling and coordination that comprised more than 50% of the visit time MARLI Lemus 08/15/2020 8:51 AM . M CRANE OPERATOR documented in this encounter Plan of Treatment [...] on patient's age to complete this to [facility] documented as of this encounter Procedures Procedure Name Priority Date/Time Associated Diagnosis Comme nts POCT URINALYSIS Routine 08/15/2020 8:47 AM Supervision of flora pelaez Results for this STEAM CRANE OPERATOR risk in procedure are in third trimester the results section. documented in this encounter Results POCT URINALYSIS W SPECIFIC GRAVITY (08/15/2020 8:47 AM STEAM CRANE OPERATOR) Pathologist Sig nature POCT U SP GRAV [...] affecting managem ent of mother, antepartum condition Anemia of mother in , antepartu m Anemia, antepartum documented in this encounter Insurance Payer Benefit Plan / Subscriber ID Effective Phone Address [facility] [id number] 2020-Prese [address] Medic aid HEALTH CHOICE - HEALTH CHOICE nt [id number] 1 MANAGED MEDICAID [place], [place] MED[place]ID [phone] documented as of this encounter Advance Directives Name Relationship Healthcare Agent Communication Relationship Susana Michaud Grandparent Health Care Agent
--- OUTSIDE RECORDS SUMMARY | 2020-09-17 04:33 | XMS REPORT | Summary of Care ---
:1995 Author Organization [facility] Address [address] [place] [address] Care Team Providers Name Role Phone Velvet Decker [facility] Primary Care Provider [phone] Reason for Visit Reason Comments ROUTINE VISIT Encounter Details Date Type Department Care Team Description 07/24/[address] [facility]P- Richard Decker vision of high risk in third trimester (Primary Dx); Visit Saba Thorne [facility] Multiparity; [address] Obesit y in [facility] [address] [place], [place] [phone] Allergies No Known Allergiesdocumented as of this encounter (statuses as of 07/24/2020) Medications Medication Sig Dispensed Refills Start Date [...] as of this encounter (statuses as of 07/24/2020) Active Problems Problem Noted Date Anemia of [...] as of this encounter (statuses as of 07/24/2020) Resolved Problems Problem Noted Date Resolved Date Carpal tunnel syndrome during 12/03/2018 04/20/2020 Chlamydia trachomatis infection of lower genitourinary sites 11/01/2018 04/20/2020 Overview: Mireya at next visit and at 36 weeks documented as of this encounter (statuses as of 07/24/2020) Immunizations Name Administration Dates Next Due Rho [...] been in contact with No / Unsure 07/24/2020 2:34 PM BIOFUELS PRODUCT MANAGER someone who was confirmed or suspected to have Coronavirus / COVID-19? documented as of this encounter Last Filed Vital Signs Vital Sign Reading Time Taken Comments Blood Pressure 110/62 07/24/2020 2:43 PM BIOFUELS PRODUCT MANAGER Pulse 84 07/24/2020 2:43 PM BIOFUELS PRODUCT MANAGER Temperature 36.9 C (98.5 F) 07/24/2020 2:43 PM BIOFUELS PRODUCT MANAGER Respiratory Rate 16 07/24/2020 2:43 PM BIOFUELS PRODUCT MANAGER Oxygen Saturation - - Inhaled Oxygen Concentration - - Weight 87.4 kg (192 lb 9.6 oz) 07/24/2020 2:43 PM BIOFUELS PRODUCT MANAGER Height 165.1 cm (5' 5") 07/24/2020 2:43 PM BIOFUELS PRODUCT MANAGER Body Mass Index 32.05 07/24/2020 2:43 PM BIOFUELS PRODUCT MANAGER documented in this encounter Progress Notes Velvet Decker, WHCNP - 07/24/2020 2:00 PM CST Chief complaint: Chief Complaint Patient presents with ROUTINE VISIT HPI CC: Follow Up Visit Karen Harman is a 25 year old, , Black or female. Patient's last menstrual period was 12/08/2019 (exact date). She is 32w5d with an intrauterine . Her estimated date [...] file Gets together: Not on file Attends islam service: Not on file Active member of [...] No new labs and Routine Visit on 07/10/2020 Component Date Value [...] Negative. Psychiatric/Behavioral: Negative. Endocrine: Endocrine negative BP 110/62 (BP Location: Right arm, Patient Position: Sitting, BP CUFF SIZE: Adult Medium) | Pulse 84 | Temp 36.9 C (98.5 F) (Oral) | Resp 16 | Ht 5' 5" (1.651 m) | Wt 192 lb 9.6 oz (87.4 kg) | LMP 12/08/2019 (Exact Date) | BMI 32.05 kg/m Pregravid BMI: 28.96 Physical Exam PHYSICAL: General Exam: Neurological: Normal Abdomen: Normal gravid Extremities: Normal Pelvic Exam: Uterus: 33 Weeks Assessment/Plan Return to clinic in 2 [...] health on future pregnancies and/or jail health. This visit did not involve counseling and coordination that comprised more than 50% of the visit time MARLI Lemus 07/24/2020 3:20 PM . UELS PRODUCT MANAGER documented in this encounter Plan of Treatment Date Type Specialty Care Team Description 08/07/2020 Routine Visit OB Satellites Carito Decker, [facility] [address] [address] [phone] Health Maintenance Due Date Last Done Comments [...] on patient's age to complete this to [facility] documented as of this encounter Procedures Procedure Name Priority Date/Time Associated Diagnosis Comme nts POCT URINALYSIS Routine 07/24/2020 2:45 PM Supervision of [facility] Results for this BIOFUELS PRODUCT MANAGER risk in procedure are in third trimester the results section. documented in this encounter Results POCT URINALYSIS W SPECIFIC GRAVITY (07/24/2020 2:45 PM BIOFUELS PRODUCT MANAGER) Pathologist Sig nature POCT U SP GRAV * 1.005 - 1.025 mg/dl POCT PH U * 5 - 8 mg/dl POCT U LEUK EST * Negative - Negative POCT U NIT * Negative - Negative POCT U PROT trace Negative - Negative POCT U GLU neg Negative - Negative POCT U KETONE * Negative - Negative POCT U UROBILI * 0.2 - 1 mg/dl POCT U BILI * Negative - Negative POCT U BLD * Negative - Negative POCT U COLOR * POCT U APPEAR * Specimen Urine - URINE, CLEAN CATCH documented in this encounter Visit Diagnoses Diagnosis Supervision of high risk in ird trimester - Primary Unspecified high-risk Multiparity Obesity in Obesity complicating , childbir th, or the puerperium, unspecified as to episode of care or not applicable documented in this encounter Insurance Payer Benefit Plan / Subscriber ID Effective Phone Address T ype Group Dates [facility] [id number] 2020-Aldo CORRIGAN Medic aid HEALTH CHOICE - HEALTH CHOICE nt [id number] 1 MANAGED MEDICAID [place], [place] MED[place]ID [phone] documented as of this encounter Advance Directives Name Relationship Healthcare Agent Communication Relationship Susana Michaud Grandparent Health Care Agent
--- OUTSIDE RECORDS SUMMARY | 2020-09-17 04:33 | XMS REPORT | Summary of Care ---
:1995 Author Organization [facility] Address [address] [place] [address] Care Team Providers Name Role Phone Geo Deckre [facility] Primary Care Provider [phone] Reason for Visit Reason Comments Care Encounter Details Date Type Department Care Team Description 08/22/2020 Routine [facility] Health RM[facility]P- Brianne, Richard vision of high risk in third trimester (Primary Dx); [facility] Mult[facility]; [address] Obesit y in ; Street Anemia of mother in , antepartu m; [place], [place] MAN A Rh negative state in antepartum period; [address] [place], [place] Viral disease exposure [phone] [id number] Allergies No Known Allergiesdocumented as of this [...] with No / Unsure 08/22/2020 2:20 PM HOTEL FRONT OFFICE MANAGER someone who was confirmed or suspected to have Coronavirus / COVID-19? documented as of this encounter Last Filed Vital Signs Vital Sign Reading Time Taken Comments Blood Pressure 112/66 08/22/2020 2:33 PM HOTEL FRONT OFFICE MANAGER Pulse 83 08/22/2020 2:33 PM HOTEL FRONT OFFICE MANAGER Temperature 36.1 C (97 F) 08/22/2020 2:33 PM HOTEL FRONT OFFICE MANAGER Respiratory Rate 16 08/22/2020 2:33 PM HOTEL FRONT OFFICE MANAGER Oxygen Saturation - - Inhaled Oxygen Concentration - - Weight 90.8 kg (200 lb 2 oz) 08/22/2020 2:33 PM HOTEL FRONT OFFICE MANAGER Height 165.1 cm (5' 5") 08/22/2020 2:33 PM HOTEL FRONT OFFICE MANAGER Body Mass Index 33.3 08/22/2020 2:33 PM HOTEL FRONT OFFICE MANAGER documented in this encounter Progress Notes Geo Decker, WHCNP - 08/22/2020 2:00 PM CST [...] file Gets together: Not on file Attends christianity service: Not on file Active member of [...] and mental health on future pregnancies and/or filler 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 Anemia of mother in , antepartum Comment: continue iron, PNV and iron-rich foods Plan: cbc today Rh negative state in antepartum period Comment: no mgmt today Plan: as needed mgmt This visit did not involve counseling and coordination that comprised more than 50% of the visit time MARLI Lemsu 08/22/2020 3:10 PM . L FRONT OFFICE MANAGER documented in this encounter Miscellaneous Notes Addendum Note - Geo Decker WHCNP - 08/22/2020 2:00 PM HOTEL FRONT OFFICE MANAGER Addended by: GEO MARTÍNEZ on: 08/22/2020 04:28 PM Modules accepted: Orders, SmartSet L FRONT OFFICE MANAGER documented in this encounter Plan of Treatment Date Type Specialty Care Team Description 08/29/2020 Routine Visit OB Satellites Carito Decker [facility]NP [address] [place], [place] [address] [phone] Name Type Priority Associated Diagnoses Order S chedule CBC WITH DIFF LAB Routine Supervision of high risk Ex pected: 08/22/2020, in third Expires: 08/22/2021 trimester GROUP B STREPTOCOCCUS BY LAB Routine Supervision of h igh risk Ordered: 08/22/2020 PCR in third trimester SARS-COV-2 IGG LAB Routine Viral disease exposure Exp ected: 08/22/2020, Expires: 2020 Health Maintenance Due Date Last Done Comments [...] on patient's age to complete this to [facility] documented as of this encounter Procedures Procedure Name Priority Date/Time Associated Diagnosis Comme nts POCT URINALYSIS Routine 08/22/2020 2:38 PM Supervision of flora pelaez Results for this HOTEL FRONT OFFICE MANAGER risk in procedure are in third trimester the results section. documented in this encounter Results POCT URINALYSIS W SPECIFIC GRAVITY (08/22/2020 2:38 PM HOTEL FRONT OFFICE MANAGER) Pathologist Sig nature POCT U SP [...] affecting managem ent of mother, antepartum condition Viral disease exposure Contact with or exposure to other viral diseases documented in this encounter Insurance Payer Benefit Plan / Subscriber ID Effective Phone Address T e [facility] [id number] 2020-Prese [address] Medic aid HEALTH CHOICE - HEALTH CHOICE nt [phone] 1 MANAGED MEDICAID [place], [place]ID [phone] documented as of this encounter Advance Directives Name Relationship Healthcare Agent Communication Relationship Susana Michaud Grandparent Health Care Agent
--- OUTSIDE RECORDS SUMMARY | 2020-09-17 04:33 | XMS REPORT | Summary of Care ---
:1995 Author Organization [facility] Address [address] [place] [address] Care Team Providers Name Role Phone [facility] [phone] Reason for Visit Reason Comments Care Encounter Details Date Type Department Care Team Description 08/29/2020 Routine [facility] Health RMCHP- Brianne, Richard vision of high risk in third trimester (Primary Dx); Visit Saba Thorne [facility] Multiparity; [address] Viral disease exposure; Street ST Obesity in ; [place], [place] MAN A Positive GBS test [address] [place], [place] [phone] [address] Allergies No Known Allergiesdocumented as of this encounter (statuses as of 08/29/2020) Medications Medication Sig Dispensed Refills Start Date [...] as of this encounter (statuses as of 08/29/2020) Active Problems Problem Noted Date Positive GBS test 08/27/2020 Overview: Treat intrapartum Anemia of mother in , antepartum 06/13/2020 Multiparity 04/20/2020 Obesity in 04/20/2020 Rh negative state in antepartum period 10/29/2018 Overview: Rhogam at 28 weeks and prn vaginal bleed ing Supervision of high-risk with insufficient p renatal care 10/28/2018 Estimated Date of Delivery Comments Yes 09/13/2020 Based on last menstr ual period of 12/08/2019 (Exact Date) documented as of this encounter (statuses as of 08/29/2020) Resolved Problems Problem Noted Date Resolved Date Carpal tunnel syndrome during 12/03/2018 04/20/2020 Chlamydia trachomatis infection of lower genitourinary sites 11/01/2018 04/20/2020 Overview: Mireya at next visit and at 36 weeks documented as of this encounter (statuses as of 08/29/2020) Immunizations Name Administration Dates Next Due Rho [...] been in contact with No / Unsure 08/29/2020 3:41 PM RANGER AIDE someone who was confirmed or suspected to have Coronavirus / COVID-19? documented as of this encounter Last Filed Vital Signs Vital Sign Reading Time Taken Comments Blood Pressure 117/71 08/29/2020 4:19 PM RANGER AIDE Pulse 85 08/29/2020 4:19 PM RANGER AIDE Temperature 37.1 C (98.7 F) 08/29/2020 4:19 PM RANGER AIDE Respiratory Rate 16 08/29/2020 4:19 PM RANGER AIDE Oxygen Saturation - - Inhaled Oxygen Concentration - - Weight 90.3 kg (199 lb) 08/29/2020 4:19 PM RANGER AIDE Height 165.1 cm (5' 5") 08/29/2020 4:19 PM RANGER AIDE Body Mass Index 33.12 08/29/2020 4:19 PM RANGER AIDE documented in this encounter Progress Notes Velvet Decker, WHCNP - 08/29/2020 3:45 PM CST Chief complaint: Chief Complaint Patient presents with Care HPI CC: Follow Up Visit Karen Harman is a 25 year old, , Black or female. Patient's last menstrual period was 12/08/2019 (exact date). She is 37w6d with an intrauterine . Her estimated date [...] file Gets together: Not on file Attends congregational service: Not on file Active member of [...] No new labs and Routine Visit on 08/22/2020 Component Date Value POCT U SP GRAV 08/22/2020 . POCT PH U 08/22/2020 . POCT U LEUK EST 08/22/2020 . POCT U NIT 08/22/2020 . POCT U PROT 08/22/2020 Trace POCT U GLU 08/22/2020 Neg POCT U KETONE 08/22/2020 . POCT U UROBILI 08/22/2020 . POCT U BILI 08/22/2020 . POCT U BLD 08/22/2020 . Group B Streptococcus by* 08/22/2020 Positive* Routine Visit on 08/15/2020 Component Date Value [...] Negative. Psychiatric/Behavioral: Negative. Endocrine: Endocrine negative BP 117/71 (BP Location: Right arm, Patient Position: Sitting, BP CUFF SIZE: Adult Medium) | Pulse 85 | Temp 37.1 C (98.7 F) (Oral) | Resp 16 | Ht 5' 5" (1.651 m) | Wt 199 lb (90.3 kg) | LMP 12/08/2019 (Exact Date) | BMI 33.12 kg/m Pregravid BMI: 28.96 Physical Exam PHYSICAL: General Exam: Neurological: Normal Abdomen: Normal gravid Extremities: Normal Pelvic Exam: Uterus: 39 Weeks Assessment/Plan Return to clinic in 1 weeks. Denies zika virus risk, signs and symptoms such as fever,rash,joint pain, conjunctivitis (red eyes),muscle pain, headaches; outside [place] travel to areas affected by zika, and FOB exposure to zika. Educated on use of mosquito repellent. 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 Positive GBS test Comment: no mgmt today Plan: address pp This visit did not involve counseling and coordination that comprised more than 50% of the visit time MARLI Lemus 08/29/2020 4:39 PM . ER AIDE documented in this encounter Plan of Treatment Date Type Specialty Care Team Description 09/05/2020 Routine Visit OB Satellites Carito Decker [facility] [address] [place], [place] [address] [phone] Name Type Priority Associated Diagnoses Date/Ti me CBC WITH DIFF LAB Routine Supervision of high risk 4:10 PM RANGER AIDE in third trimester SARS-COV-2 IGG LAB Routine Viral disease exposure 05/2020 4:10 PM RANGER AIDE Health Maintenance Due Date Last Done Comments [...] on patient's age to complete this to [facility] documented as of this encounter Procedures Procedure Name Priority Date/Time Associated Diagnosis Comme nts POCT URINALYSIS Routine 08/29/2020 4:21 PM Supervision of [facility] Results for this RANGER AIDE risk in procedure are in third trimester the results section. documented in this encounter Results POCT URINALYSIS W SPECIFIC GRAVITY (08/29/2020 4:21 PM RANGER AIDE) Pathologist Sig nature POCT U SP GRAV [...] ird trimester - Primary Unspecified high-risk Multiparity Viral disease exposure Contact with or exposure to other viral diseases Obesity in Obesity complicating , childbir , or the puerperium, unspecified as to episode of care or not applicable Positive GBS test documented in this encounter Insurance Payer Benefit Plan / Subscriber ID Effective Phone Address T ype Group Dates [facility] [id number] 2020-Prese [address] Medic aid HEALTH CHOICE - HEALTH CHOICE nt [phone] 1 MANAGED MEDICAID [place], [place] MED[place]ID [phone] documented as of this encounter Advance Directives Name Relationship Healthcare Agent Communication Relationship Susana Michaud Grandparent Health Care Agent
--- OUTSIDE RECORDS SUMMARY | 2020-09-17 04:33 | XMS REPORT | Summary of Care ---
:1995 Author Organization [facility] Address [address] [place] [address] Care Team Providers Name Role Phone Geo Decker [facility] Primary Care Provider [phone] Reason for Visit Reason Comments Care Encounter Details Date Type Department Care Team Description 08/22/2020 Routine [facility] Health RMCHP- Brianne, Richard vision of high risk in third trimester (Primary Dx); [facility]; [address] Obesit y in ; Street Anemia of mother in , antepartu m; [place], [place] MAN A Rh negative state in antepartum period; [address] [place], [place] Viral disease exposure [phone] Allergies No Known Allergiesdocumented as of this [...] with No / Unsure 08/22/2020 2:20 PM CRACKING UNIT OPERATOR someone who was confirmed or suspected to have Coronavirus / COVID-19? documented as of this encounter Last Filed Vital Signs Vital Sign Reading Time Taken Comments Blood Pressure 112/66 08/22/2020 2:33 PM CRACKING UNIT OPERATOR Pulse 83 08/22/2020 2:33 PM CRACKING UNIT OPERATOR Temperature 36.1 C (97 F) 08/22/2020 2:33 PM CRACKING UNIT OPERATOR Respiratory Rate 16 08/22/2020 2:33 PM CRACKING UNIT OPERATOR Oxygen Saturation - - Inhaled Oxygen Concentration - - Weight 90.8 kg (200 lb 2 oz) 08/22/2020 2:33 PM CRACKING UNIT OPERATOR Height 165.1 cm (5' 5") 08/22/2020 2:33 PM CRACKING UNIT OPERATOR Body Mass Index 33.3 08/22/2020 2:33 PM CRACKING UNIT OPERATOR documented in this encounter Progress Notes Geo [...] file Gets together: Not on file Attends muslim service: Not on file Active member of [...] and mental health on future pregnancies and/or manager long term care health. Anemia of mother in , antepartum Comment: continue iron, PNV and iron-rich foods Plan: cbc today Rh negative state in antepartum period Comment: no mgmt today Plan: as needed mgmt This visit did not involve counseling and coordination that comprised more than 50% of the visit time MARLI Lemus 08/22/2020 3:10 PM . KING UNIT OPERATOR documented in this encounter Miscellaneous Notes Addendum Note - Geo Decker WHCNP - 08/22/2020 2:00 PM CRACKING UNIT OPERATOR Addended by: GEO MARTÍNEZ on: 08/22/2020 04:28 PM Modules accepted: Orders, SmartSet KING UNIT OPERATOR documented in this encounter Plan of Treatment Date Type Specialty Care Team Description 08/29/2020 Routine Visit OB Satellites Carito Decker [facility] [address] [place], [place] [address] [phone] Name Type Priority Associated Diagnoses Date/Ti me GROUP B STREPTOCOCCUS BY LAB Routine Supervision of h igh risk 08/22/2020 4:29 PM PCR in third CRACKING UNIT OPERATOR trimester Name Type Priority Associated Diagnoses Order S chedule CBC WITH DIFF LAB Routine Supervision of high risk Ex pected: 08/22/2020, in third trimester Expires: 08/22/2021 SARS-COV-2 IGG LAB Routine Viral disease exposure [...] age to complete this to [facility] documented as of this encounter Procedures Procedure Name Priority Date/Time Associated Diagnosis Comme nts POCT URINALYSIS Routine 08/22/2020 2:38 PM Supervision of flora pelaez Results for this CRACKING UNIT OPERATOR risk in procedure are in third trimester the results section. documented in this encounter Results POCT URINALYSIS W SPECIFIC GRAVITY (08/22/2020 2:38 PM CRACKING UNIT OPERATOR) Pathologist Sig nature POCT U SP [...] Subscriber ID Effective Phone Address T e [facility] [id number] 2020-Prese [address] Medic aid HEALTH CHOICE - HEALTH Agentek nt [phone] 1 MANAGED MEDICAID [place], [place]ID [phone] documented as of this encounter Advance Directives Name Relationship Healthcare Agent Communication Relationship Susana Michaud Grandparent Health Care Agent
--- OUTSIDE RECORDS SUMMARY | 2020-09-17 04:34 | XMS REPORT | Summary of Care ---
:1995 Author Organization [facility] Address [address] [place] [address] Care Team Providers Name Role Phone Velvet Decker [facility] Primary Care Provider [phone] Reason for Visit Reason Comments Care Encounter Details Date Type Department Care Team Description 09/05/2020 Routine [facility]- Brianne, Richard vision of high risk in third trimester (Primary Dx); Visit [facility]; [address] Obesit y in ; Street ST Rh negative state in antepartum period; [place], [place] MAN A Anemia of mother in , antepartu [address] [place], [place] [phone] [address] Allergies No Known Allergiesdocumented as of this encounter (statuses as of 09/06/2020) Medications Medication Sig Dispensed Refills Start Date [...] as of this encounter (statuses as of 09/06/2020) Active Problems Problem Noted Date Positive GBS [...] as of this encounter (statuses as of 09/06/2020) Resolved Problems Problem Noted Date Resolved Date Carpal tunnel syndrome during 12/03/2018 04/20/2020 Chlamydia trachomatis infection of lower genitourinary sites 11/01/2018 04/20/2020 Overview: Mireya at next visit and at 36 weeks documented as of this encounter (statuses as of 09/06/2020) Immunizations Name Administration Dates Next Due Rho [...] been in contact with No / Unsure 09/05/2020 2:36 PM PIECE WORK CHECKER someone who was confirmed or suspected to have Coronavirus / COVID-19? documented as of this encounter Last Filed Vital Signs Vital Sign Reading Time Taken Comments Blood Pressure 117/80 09/05/2020 2:37 PM PIECE WORK CHECKER Pulse 93 09/05/2020 2:37 PM PIECE WORK CHECKER Temperature 36.8 C (98.3 F) 09/05/2020 2:37 PM PIECE WORK CHECKER Respiratory Rate 16 09/05/2020 2:37 PM PIECE WORK CHECKER Oxygen Saturation - - Inhaled Oxygen Concentration - - Weight 89 kg (196 lb 2 oz) 09/05/2020 2:37 PM PIECE WORK CHECKER Height 165.1 cm (5' 5") 09/05/2020 2:37 PM PIECE WORK CHECKER Body Mass Index 32.64 09/05/2020 2:37 PM PIECE WORK CHECKER documented in this encounter Progress Notes Velvet Decker, WHCNP - 09/05/2020 2:15 PM CST Chief complaint: Chief Complaint Patient presents with Care HPI CC: Follow Up Visit Karen Harman is a 25 year old, , Black or female. Patient's last menstrual period was 12/08/2019 (exact date). She is 38w6d with an intrauterine . Her estimated date [...] file Gets together: Not on file Attends adventism service: Not on file Active member of [...] last sexual intercourse 03/21/2020 Labs No new labs, Routine Visit on 08/29/2020 Component Date Value WBC 08/29/2020 7.57 RBC 08/29/2020 3.85* HGB 08/29/2020 11.3* HCT 08/29/2020 35.1* MCV 08/29/2020 91.2 MCH 08/29/2020 29.4 MCHC 08/29/2020 32.2 RDW-SD 08/29/2020 45.0 RDW-CV 08/29/2020 13.9 PLT 08/29/2020 240 MPV 08/29/2020 11.5 NRBC/100 WBC 08/29/2020 0.0 NRBC x10^3 08/29/2020 <0.01 GRAN MAT (NEUT) % 08/29/2020 67.6 IMM GRAN % 08/29/2020 1.80 LYMPH % 08/29/2020 16.5 MONO % 08/29/2020 12.4 EOS % 08/29/2020 1.2 BASO % 08/29/2020 0.5 GRAN MAT x10^3(ANC) 08/29/2020 5.11 IMM GRAN x10^3 08/29/2020 0.14* LYMPH x10^3 08/29/2020 1.25* MONO x10^3 08/29/2020 0.94* EOS x10^3 08/29/2020 0.09 BASO x10^3 08/29/2020 0.04 CoV-2 IgG 08/29/2020 Negative POCT U SP GRAV 08/29/2020 . POCT PH U 08/29/2020 . POCT U LEUK EST 08/29/2020 . POCT U NIT 08/29/2020 . POCT U PROT 08/29/2020 Trace POCT U GLU 08/29/2020 Neg POCT U KETONE 08/29/2020 . POCT U UROBILI 08/29/2020 . POCT U BILI 08/29/2020 . POCT U BLD 08/29/2020 . COVID DMT Interpretation 08/29/2020 Value:Interpretation/Recommendation: Molecular NAAT Tests for Active Infection with the SARS-CoV-2 Virus: This patient was never tested for an active infection with the SARS-CoV-2 virus that causes COVID-19illness. If there is clinical suspicion for COVID-19 illness, molecular NAAT testing (PCR, Rapid ID Now, etc.) is recommended. Tests for IgM and/or IgG Antibodies to SARS-CoV-2 Virus: The patient has continued to test negative for SARS-CoV-2 IgG antibodies. This most likely indicatesthat the patient has never been infected with the SARS-CoV-2 virus that causes COVID-19 illness, especially if the patient never experienced any symptoms. Of note, some patients with a positive molecular NAAT test (PCR, Rapid ID Now, etc.) who are asymptomatic or only have mild illness do not generateantibodies. While rare, some patients never mount an antibody response to infectious agents, such [id number], which can explain persistently negative antibody tests. At this time, it is unknown if the production of IgG antibodies indicates immunity to the SARS-CoV-2 virus and for how long IgG antibody production lasts. Interpretation Result Comments: These interpretation comments are based upon aggregate COVID-19 test results pooled from [facility]. They apply to the following tests offered at [facility] and assume the acceptable specimen type(s) were used: A. Tests for the Identification of SARS-CoV-2 RNA (Molecular NAAT Tests): - SARS-CoV-2 PCR assays including [place] Aptima, [place] Fusion, Ng RealTime, and [employer] Xpert Xpress. - SARS-CoV-2 Rapid ID NOW by the ID NOW assay. B. Tests for the Identification of SARS-CoV-2 Antibodies: - Chemiluminescent immunoassays including Access SARS-CoV-2 IgM (DXI 600), VITROS Sxyj-XYSG-HdK-2 IgG (Vitros 5600 and Vitros 3600), and Ng SARS-CoV-2 IgG (CASINO CASHIER MANAGER I System). These interpretations are autopopulated into [employer] based on computerized algorithms matching an interpretation code to the patient's set of test results, and a clinical pathologist evaluates the comments for accuracy. However, these comments do not consider testing a patient may have had outside of the [facility] system. If results for COVID-19 infection continue to be negative in the context of a suspected viral respiratory illness, it is possible the patient may have an infection with another respiratory virus. Influenza testing and a respiratory pathogen panel if clinically indicated may be beneficial in this setting. If there continues to be a high degree of clinical suspicion for COVID-19 illness despite multiple negative tests on nasopharyngeal specimens, then it may be necessary to test the patient for the SARS-CoV-2 virus using lower respiratory tract samples (such as sputum, bronchoalveolar lavage fluid (BAL), tracheal aspirate, etc.). COVID Results 08/29/2020 CoV-2 IgG (no units) Date Value 08/29/2020 Negative 04/20/2020 Negative Routine Visit on 08/22/2020 Component Date Value [...] x10^3 06/12/2020 0.19 BASO x10^3 06/12/2020 0.04 and Routine Visit on 08/29/2020 Component Date Value WBC 08/29/2020 7.57 RBC 08/29/2020 3.85* HGB 08/29/2020 11.3* HCT 08/29/2020 35.1* MCV 08/29/2020 91.2 MCH 08/29/2020 29.4 MCHC 08/29/2020 32.2 RDW-SD 08/29/2020 45.0 RDW-CV 08/29/2020 13.9 PLT 08/29/2020 240 MPV 08/29/2020 11.5 NRBC/100 WBC 08/29/2020 0.0 NRBC x10^3 08/29/2020 <0.01 GRAN MAT (NEUT) % 08/29/2020 67.6 IMM GRAN % 08/29/2020 1.80 LYMPH % 08/29/2020 16.5 MONO % 08/29/2020 12.4 EOS % 08/29/2020 1.2 BASO % 08/29/2020 0.5 GRAN MAT x10^3(ANC) 08/29/2020 5.11 IMM GRAN x10^3 08/29/2020 0.14* LYMPH x10^3 08/29/2020 1.25* MONO x10^3 08/29/2020 0.94* EOS x10^3 08/29/2020 0.09 BASO x10^3 08/29/2020 0.04 CoV-2 IgG 08/29/2020 Negative POCT U SP GRAV 08/29/2020 . POCT PH U 08/29/2020 . POCT U LEUK EST 08/29/2020 . POCT U NIT 08/29/2020 . POCT U PROT 08/29/2020 Trace POCT U GLU 08/29/2020 Neg POCT U KETONE 08/29/2020 . POCT U UROBILI 08/29/2020 . POCT U BILI 08/29/2020 . POCT U BLD 08/29/2020 . COVID DMT Interpretation 08/29/2020 Value:Interpretation/Recommendation: Molecular NAAT Tests for Active Infection with the SARS-CoV-2 Virus: This patient was never tested for an active infection with the SARS-CoV-2 virus that causes COVID-19illness. If there is clinical suspicion for COVID-19 illness, molecular NAAT testing (PCR, Rapid ID Now, etc.) is recommended. Tests for IgM and/or IgG Antibodies to SARS-CoV-2 Virus: The patient has continued to test negative for SARS-CoV-2 IgG antibodies. This most likely indicatesthat the patient has never been infected with the SARS-CoV-2 virus that causes COVID-19 illness, especially if the patient never experienced any symptoms. Of note, some patients with a positive molecular NAAT test (PCR, Rapid ID Now, etc.) who are asymptomatic or only have mild illness do not generateantibodies. While rare, some patients never mount an antibody response to infectious agents, such [id number], which can explain persistently negative antibody tests. At this time, it is unknown if the production of IgG antibodies indicates immunity to the SARS-CoV-2 virus and for how long IgG antibody production lasts. Interpretation Result Comments: These interpretation comments are based upon aggregate COVID-19 test results pooled from [facility]. They apply to the following tests offered at [facility] and assume the acceptable specimen type(s) were used: A. Tests for the Identification of SARS-CoV-2 RNA (Molecular NAAT Tests): - SARS-CoV-2 PCR assays including [place] Aptima, [place] Fusion, Ng RealTime, and [employer] Xpert Xpress. - SARS-CoV-2 Rapid ID NOW by the ID NOW assay. B. Tests for the Identification of SARS-CoV-2 Antibodies: - Chemiluminescent immunoassays including Access SARS-CoV-2 IgM (DXI 600), VITROS Xaaw-IEFZ-BjL-2 IgG (Vitros 5600 and Vitros 3600), and Ng SARS-CoV-2 IgG (CASINO CASHIER MANAGER I System). These interpretations are autopopulated into [facility] based on computerized algorithms matching an interpretation code to the patient's set of test results, and a clinical pathologist evaluates the comments for accuracy. However, these comments do not consider testing a patient may have had outside of the [facility] system. If results for COVID-19 infection continue to be negative in the context of a suspected viral respiratory illness, it is possible the patient may have an infection with another respiratory virus. Influenza testing and a respiratory pathogen panel if clinically indicated may be beneficial in this setting. If there continues to be a high degree of clinical suspicion for COVID-19 illness despite multiple negative tests on nasopharyngeal specimens, then it may be necessary to test the patient for the SARS-CoV-2 virus using lower respiratory tract samples (such as sputum, bronchoalveolar lavage fluid (BAL), tracheal aspirate, etc.). COVID Results 08/29/2020 CoV-2 IgG (no units) Date Value 08/29/2020 Negative 04/20/2020 Negative Routine Visit on 08/22/2020 Component Date Value [...] Negative Case Report 04/20/2020 Value:Gynecologic Cytology Case: [id number] Authorizing Provider: Velvet Decker, Collected: 04/20/2020 1617 [facility] Ordering Location: [facility]- Received: 04/20/[address] [place] [address] Screen: Meagan Plascencia Specimen: Liquid Based Pap [...] Negative. Psychiatric/Behavioral: Negative. Endocrine: Endocrine negative BP 117/80 (BP Location: Right arm, Patient Position: Sitting, BP CUFF SIZE: Adult Medium) | Pulse 93 | Temp 36.8 C (98.3 F) (Oral) [...] and mental health on future pregnancies and/or watcher [employer] health. Rh negative state in antepartum period Comment: no mgmt today Plan: as needed mgmt Anemia of mother in , antepartum Comment: continue iron, PNV and iron-rich foods Plan: as needed mgmt This visit did not involve counseling and coordination that comprised more than 50% of the visit time MARLI Lemus 09/05/2020 2:54 PM . E WORK CHECKER documented in this encounter Plan of Treatment Date Type Specialty Care Team Description 09/11/2020 Routine Visit OB Satellites Carito Decker, [facility] [address], [place] [address] [phone] Health Maintenance Due Date Last Done Comments [...] on patient's age to complete this to [facility] documented as of this encounter Procedures Procedure Name Priority Date/Time Associated Diagnosis Comme nts POCT URINALYSIS Routine 09/05/2020 4:33 PM Supervision of [facility] latanya Results for this PIECE WORK CHECKER risk in procedure are in third trimester the results section. documented in this encounter Results POCT URINALYSIS W SPECIFIC GRAVITY (09/05/2020 4:33 PM PIECE WORK CHECKER) Pathologist Sig nature POCT U SP GRAV [...] Subscriber ID Effective Phone Address T e [facility] [id number] 2020-[address] Medic aid HEALTH CHOICE - HEALTH CHOICE nt [id number] 1 MANAGED MEDICAID [place], [place] MED[place]ID [id number] documented as of this encounter Advance Directives Name Relationship Healthcare Agent Communication Relationship Susana Michaud Grandparent Health Care Agent
--- OUTSIDE RECORDS SUMMARY | 2020-09-17 04:34 | XMS REPORT | Summary of Care ---
:[address] [facility] Address [address] [place] [address] Care Team Providers Name Role Phone [facility] [phone] Reason for Visit Reason Comments Care Encounter Details Date Type Department Care Team Description 08/29/2020 Routine [facility] Health [facility]- Brianne, Richard vision of high risk in third trimester (Primary Dx); Visit Saba Thorne [facility]; [address] Viral disease exposure; Street ST Obesity in ; [place], [place] MAN A Positive GBS test [address] [place], [place] [phone] [address] Allergies No Known Allergiesdocumented as of [...] with No / Unsure 08/29/2020 3:41 PM AUTO DAMAGE APPRAISER someone who was confirmed or suspected to have Coronavirus / COVID-19? documented as of this encounter Last Filed Vital Signs Vital Sign Reading Time Taken Comments Blood Pressure 117/71 08/29/2020 4:19 PM AUTO DAMAGE APPRAISER Pulse 85 08/29/2020 4:19 PM AUTO DAMAGE APPRAISER Temperature 37.1 C (98.7 F) 08/29/2020 4:19 PM AUTO DAMAGE APPRAISER Respiratory Rate 16 08/29/2020 4:19 PM AUTO DAMAGE APPRAISER Oxygen Saturation - - Inhaled Oxygen Concentration - - Weight 90.3 kg (199 lb) 08/29/2020 4:19 PM AUTO DAMAGE APPRAISER Height 165.1 cm (5' 5") 08/29/2020 4:19 PM AUTO DAMAGE APPRAISER Body Mass Index 33.12 08/29/2020 4:19 PM AUTO DAMAGE APPRAISER documented in this encounter Progress Notes Velvet [...] file Gets together: Not on file Attends roman catholic service: Not on file Active member of [...] and mental health on future pregnancies and/or health promotion coordinator health. Positive GBS test Comment: no mgmt today Plan: address pp This visit did not involve counseling and coordination that comprised more than 50% of the visit time MARLI Lemus 08/29/2020 4:39 PM . DAMAGE APPRAISER documented in this encounter Plan of Treatment Date Type Specialty Care Team Description 09/05/2020 Routine Visit OB Satellites Carito Decker [facility] [address] [place], [place] [address] [phone] Name Type Priority Associated Diagnoses Date/Ti me CBC WITH DIFF LAB Routine Supervision of high risk 4:10 PM AUTO DAMAGE APPRAISER in third trimester SARS-COV-2 IGG LAB Routine Viral disease exposure 05/2020 4:10 PM AUTO DAMAGE APPRAISER Health Maintenance Due Date Last Done Comments [...] on patient's age to complete this to [facility] documented as of this encounter Procedures Procedure Name Priority Date/Time Associated Diagnosis Comme nts POCT URINALYSIS Routine 08/29/2020 4:21 PM Supervision of [facility] latanya Results for this AUTO DAMAGE APPRAISER risk in procedure are in third trimester the results section. documented in this encounter Results POCT URINALYSIS W SPECIFIC GRAVITY (08/29/2020 4:21 PM AUTO DAMAGE APPRAISER) Pathologist Sig nature POCT U SP GRAV [...] Effective Phone Address T ype Group Dates [facility] [place] [id number] 2020-[address] Medic aid HEALTH CHOICE - HEALTH CHOICE nt [phone] 1 MANAGED MEDICAID [place], [place] MED[place]ID [id number] documented as of this encounter Advance Directives Name Relationship Healthcare Agent Communication Relationship Susana Michaud Grandparent Health Care Agent
[2020-09-17] MEDS ORDERED: BUTORPHANOL 1 MG/ML INJ IV PRN (05:05)
[2020-09-17] MEDS ORDERED: Ringers Lactate 1,000 ML IV PRN (05:05)
[2020-09-17] MEDS ORDERED: PENICILLIN 5 MU in NA CHLORIDE 0.9% 100 ML IV ONE (05:05)
[2020-09-17] MEDS ORDERED: PROMETHAZINE INJ 25 MG/ML AMP IM PRN (05:05)
[2020-09-17] MEDS ORDERED: CARBOPROST TROME 250 MCG/ML IM PRN (05:05)
[2020-09-17] MEDS ORDERED: METHYLERGONOVINE 0.2MG/ML AMP IM PRN (05:05)
[2020-09-17 05:46] LABS: Absolute Lymphocytes (CBC) 1.3 K/uL (0.7-4.9); Basophils % 0.6 % (0-1.3); Hematocrit 36.1 % (36.0-45.0); Lymphocytes % 17.6 % (15.3-44.8); MPV 10.3 fL (7.6-11.3)
[2020-09-17 05:57] VITALS: BMI 33.3
[2020-09-17] MEDS ORDERED: Ringers Lactate 1,000 ML IV SCH (06:00)
[2020-09-17] MEDS ORDERED: OXYTOCIN/LR 20 UNIT/1,000 ML BAG IV SCH (06:00)
[2020-09-17] MEDS ORDERED: LIDOCAINE 1% MPF 30 ML VIAL ONE (07:08)
--- NOTE | 2020-09-17 07:51 | PREOPHP ---
Date of Admission: 09/17/2020 History Of Present Illness: 25-year-old 2, para 1, 40 weeks 4 days, apparently followed by [facility] while the patient admits that she has not been seen there in the last month. Says earlier this month she was checked for COVID, was negative. Comes in to our institution in active labor, 6 to 7 cm on admission nato regularly. After obtaining records, it has become clear the patient is strep positive. She has been started on antibiotics. Quick testing here in the hospital shows s he is also COVID positive. She is now about 8.5 cm. Baby is still -1 to 0 station. Rupture of memb ranes, clear fluid. It has been more than an hour since the antibiotics were started. We will start light Pitocin. Anticipate delivery relatively soon. Family History: Noncontributory. Past Medical History: Not contributory. Allergies: SHE HAS NO ALLERGIES. Physical Examination: Basically normal. Vital Signs: All stable. Pelvic: As stated. Anticipate delivery relatively soon. JENNYFER/STEFANO Voice ID: [id number]
[2020-09-17] MEDS ORDERED: PENICILLIN 2.5 MU in NA CHLORIDE 0.9% 100 ML IV SCH (09:00)
[2020-09-17] MEDS ORDERED: IBUPROFEN 200 MG TAB PO PRN (09:25)
[2020-09-17] MEDS ORDERED: BISACODYL 10 MG RECTAL SUPP PR PRN (09:25)
[2020-09-17] MEDS ORDERED: DOCUSATE NA/SENNA CONC 1 TAB PO PRN (09:25)
[2020-09-17] MEDS ORDERED: ACETAMINOPHEN 500 MG TAB PO PRN (09:25)
[2020-09-17] MEDS ORDERED: DIPHENHYDRAMINE 25 MG TAB/CAP PO PRN (09:25)
[2020-09-17] MEDS ORDERED: Oxycodone HCl/Acetaminophen 1 TAB TAB PO PRN ×2 (09:25)
--- NOTE | 2020-09-17 09:45 | OP ---
Surgeon: David Johnson MD Indication And Procedure: 25-year-old 2, para 1, 40 weeks 4 days, had been seen in the [facility], although patient admits she had not been seen there in the last month. Says she tested negat rambo for COVID earlier in the month, now was positive when she comes in here. Beta strep positive as well. 6-7 cm on admission. Rupture of membranes, clear fluid. The patient had augmentation second stage of about an hours spontaneous vaginal delivery of an 8 pounds 4 ounces female, Apgars 9 and 9. Second-degree midline laceration simulating episiotomy repaired with 2-0 chromic under local infiltr ation. Schultze delivery of the placenta, inspected, and noted to be intact and normal. 300 mL or l ess blood loss. 5 million units of penicillin given during the labor at least 2 hours prior to deliv flaca or more, another dose ordered as the patient had fecal contamination quite a bit of stools during the pushing stage. Tolerated all procedures well. Final Diagnoses: Intrauterine gestation, 40 weeks 4 days [facility] drop in, vaginal delivery, penicillin prophylaxis, COVID positive. Rh negative as well. JENNYFER/STEFANO Voice ID: [id number] Report ID: [id number]
[2020-09-17] MEDS ORDERED: OXYTOCIN/LR 20 UNITS/1,000 ML BAG IV SCH (10:00)
[2020-09-17 23:58] LABS: RPR (Rapid Plasma Reagin) NON-REACT (NON-REACT)
--- NOTE | 2020-09-18 08:00 | PREOPHP ---
Date of Admission: 09/17/2020 History Of Present Illness: 25-year-old 2, para 1, followed antepartum with [email or web address], pa hicks she had not been seen for at least a month prior to admission, admitted in active labor, subseq uently delivered an 8 pounds 4 ounces female, Apgars 9 and 9. Second-degree laceration simulating ep isiotomy repaired with 2-0 chromic under local infiltration. Schultze delivery of the placenta was i nspected and noted to be intact and normal 300 mL blood loss. The patient has history of positive st rep status, was given penicillin during the labor. afebrile, ambulating, and voiding. Lo lavern is normal. Will be dismissed later today to report back to the [email or web address] in 6 weeks for kat patel to report any temperature elevation of 100 degrees or greater, severe pain, heavy bleeding, or an y other type of abnormalities. The patient was noted to be COVID positive as well as completely asym ptomatic. Immune to rubella. She is B negative. Baby is Rh positive. RhoGAM has been ordered. Td ap and flu shots also offered today. Final Diagnoses: Intrauterine 40 weeks 4 days, drop in delivery from [email or web address] positive for COVID, positive for strep. Penicillin prophylaxis. Tdap and flu shots offered. JENNYFER/STEFANO Voice ID: [id number]
[2020-09-18] MEDS ORDERED: Rho(D) IG (HUMAN) 300 MCG SYR IM ONE (08:30)
[2020-09-18 08:36] VITALS: BP 113/51; TEMP 97.8
[2020-09-19 19:06] LABS: HBsAG Nonreactive (Nonreactive)
== END 2020-09-18 11:20 | disposition home or self-care (01) | DRG 805 ==
LOC: L&D 04:29 → 2ND-WC 04:55
PROVIDERS: ADMIT Specialist; ATTEND Specialist
PROC: 10E0XZZ Delivery of Products of Conception, External Approach (ICD-10-PCS; principal; 2020-09-17)
PROC: 0KQM0ZZ Repair Perineum Muscle, Open Approach (ICD-10-PCS; 2020-09-17)
PROC: 3E0234Z Introduction of Serum, Toxoid and Vaccine into Muscle, Percutaneous Approach (ICD-10-PCS; 2020-09-17)
PROC: 10907ZC Drainage of Amniotic Fluid, Therapeutic from Products of Conception, Via Natural or Artificial Opening (ICD-10-PCS; 2020-09-17)
DX: O98.52 Other viral diseases complicating childbirth (principal); U07.1 COVID-19; Z37.0 Single live birth; O99.824 Streptococcus B carrier state complicating childbirth; O70.1 Second degree perineal laceration during delivery; Z3A.40 40 weeks gestation of pregnancy
CPT/HCPCS: 36415; 85025; 85461; 86592; 86850; 86900; 86901; 87340; J2210; J2540; J2590; J2790; J7120; U0003